=== PATIENT | female | born 1970 | race Caucasian/White ===

== ENCOUNTER → 2020-09-15 12:20 | Outpatient (CLI) | payer BC, SELFPAY ==
--- NOTE | ~2020-09-15 | XR_ITS ---
XR ankle LT min 3V DATE: 09/15/2020 12:38 INDICATION: Left lateral ankle pain from running TECHNIQUE: 4 views COMPARISON: None FINDINGS: There is mild lateral soft tissue swelling. No fracture or dislocation of the ankle or disr uption of the ankle mortise. Mild plantar and slight posterior calcaneal enthesopathy IMPRESSION: Mild lateral soft tissue swelling Reviewed, dictated and finalized at location A.
== END ==
PROVIDERS: PCP Internal Medicine; Visit Provider Internal Medicine Endocrinology, Diabetes & Metabolism
DX: M25.572 Pain in left ankle and joints of left foot (principal); M79.89 Other specified soft tissue disorders
CPT/HCPCS: 73610

== ENCOUNTER 2021-08-09 11:00 | Emergency (ER) | payer BC, SELFPAY ==
[2021-08-09 11:06] VITALS: BP 139/88; PULSE 62; RESP 16; TEMP 36.4; O2SAT 99
--- NOTE | 2021-08-09 11:06 | ED.SKABFB ---
HPI - Skin/Abscess/Foreign Bdy General Chief complaint: Skin/Abscess/Foreign Body Stated complaint: rash on face and neck Time Seen by Provider: 08/09/21 11:08 Source: patient Mode of arrival: ambulatory Limitations: no limitations History of Present Illness HPI narrative: 50-year-old female presented for complaint of rash to the left side of her face and neck, onset 2 days ago. States the rash itches, denies any pain or drainage. She endorses laying out in the sun and using a new sunscreen, she was also pulling weeds. She has applied Benadryl cream and hydrocortisone cream with minimal relief. MD complaint: rash Related Data Home Medications Medication Instructions Recorded Confirmed colchicine 0.6 mg tablet tablet 08/09/21 fluticasone furoate 200 ea inhalation 08/09/21 mcg-vilanterol 25 mcg/dose inhalation powder (Breo Ellipta) levothyroxine 100 mcg tablet tablet 08/09/21 mepolizumab 100 mg/mL subcutaneous ea subcut 08/09/21 auto-injector (Nucala) Allergies Allergy/AdvReac Type Severity Reaction Status Date / Time No Known Allergies Allergy Unknown Unverified 08/10/15 18:57 Review of Systems Review of Systems: CONSTITUTIONAL: Denies body aches, fever, chills, or sweats. EYES: Denies visual changes itching or drainage ENT: Denies rhinorrhea, congestion, sore throat, or otalgia. CARDIOVASCULAR: Denies chest pain, palpitations, or edema. RESPIRATORY: Denies cough or dyspnea. GASTROINTESTINAL: Denies abdominal pain, nausea, vomiting, or diarrhea. SKIN: endorses rash, itching NEUROLOGIC: Denies headache, numbness, tingling, or weakness. PMFSH Comments At time of signature, I have reviewed and agree with nursing past medical, surgical, social and family history unless otherwise noted. Please see nursing chart for further information. There is no relevant family history pertinent to the presenting complaint Exam Narrative: GENERAL: Well-appearing; no acute distress. HEAD: Normocephalic, atraumatic. EYES: PERRLA, conjunctivae clear, and EOMI. ENT: Mucous membranes moist. Oropharynx without edema, erythema or lesions. NECK: Supple. No lymphadenopathy CHEST: Clear to auscultation. No respiratory distress. HEART: Regular rate and rhythm. SKIN: Warm, dry. Patches of erythematous papular lesions to left side of face/hairline and middle of neck crossing to right side of cheek and neck; one lesion to left cheek and small lesion to middle of upper lip under nose; c/w dermatitis NEURO: Alert and oriented x3. PSYCH: Normal mood and affect Course Course Emergency Course: Patient is aware of diagnosis, understands and agrees to treatment plan. Anticipatory guidance given. Patient agrees to follow-up as directed and is aware of reasons to seek care at the emergency department. Portions of this record may have been created with voice recognition software Level of Care: Express Care Visit Vital Signs Vital signs: Reviewed MDM - Skin/Abscess/Foreign Bdy MDM Narrative Medical decision making narrative: Does not appear at this time to be erythema multiforme, bullous, SJS, TEN; Patient looks well, nontoxic; no neurologic signs or symptoms; No soft palate or uvula edema, no tongue, lip edema or other mucosal involvement, no respiratory compromise, afebrile; appropriate for initial outpatient treatment; discussed the importance of follow-up, patient agrees. Instructed patient to go to nearest ER immediately for any worsening symptoms including but not limited to: fever, spreading rash, pain, sore throat, headache, dizziness, chest pain, trouble breathing, or any symptoms concerning to the patient. Differential Diagnosis Differential diagnosis: Likely abscess of skin or subcutaneous tissue, urticaria, herpes zoster, cellulitis and contact dermatitis Discharge Plan Discharge Clinical Impression: Contact dermatitis Qualifiers: Contact dermatitis type: unspecified Contact dermatitis trigger: unspecified trigger
== END 2021-08-09 11:25 | disposition home or self-care (01) ==
PROVIDERS: Emergency Provider Nurse Practitioner Family; PCP Internal Medicine
DX: L25.9 Unspecified contact dermatitis, unspecified cause (principal); J45.909 Unspecified asthma, uncomplicated; E03.9 Hypothyroidism, unspecified
CPT/HCPCS: 99203; G0463

== ENCOUNTER 2021-08-18 11:02 | Emergency (ER) | payer BC, SELFPAY ==
[2021-08-18 11:08] VITALS: BP 137/88; PULSE 57; RESP 12; TEMP 36.2; O2SAT 100
--- NOTE | 2021-08-18 11:24 | ED.SKABFB ---
HPI - Skin/Abscess/Foreign Bdy General Chief complaint: Skin/Abscess/Foreign Body Stated complaint: RASH ON FACE Source: patient Mode of arrival: ambulatory Limitations: no limitations History of Present Illness HPI narrative: 50-year-old female presented for complaint of rash to the left side of her face, stating she thinks it is poison marsha, for about 4 days. She was seen on 08/09 and given a steroid for rash on her face as well which had resolved. However she also reports that she started pulling weeds again and developed the new rash subsequently. Admits she has never pulled weeds prior to 08/09 rash. Denies lip tongue or throat swelling or itching. Has applied hydrocortisone and calamine to the sites. MD complaint: rash Related Data Home Medications Medication Instructions Recorded Confirmed colchicine 0.6 mg tablet tablet 08/09/21 fluticasone furoate 200 ea inhalation 08/09/21 mcg-vilanterol 25 mcg/dose inhalation powder (Breo Ellipta) levothyroxine 100 mcg tablet tablet 08/09/21 mepolizumab 100 mg/mL subcutaneous ea subcut 08/09/21 auto-injector (Nucala) Allergies Allergy/AdvReac Type Severity Reaction Status Date / Time No Known Allergies Allergy Unknown Unverified 08/10/15 18:57 Review of Systems Review of Systems: CONSTITUTIONAL: Denies body aches, fever, chills, or sweats. EYES: Denies visual changes, redness, swelling or discharge. ENT: Denies rhinorrhea, congestion, sore throat, or otalgia. CARDIOVASCULAR: Denies chest pain, palpitations, or edema. RESPIRATORY: Denies cough or dyspnea. GASTROINTESTINAL: Denies abdominal pain, nausea, vomiting, or diarrhea. GENITOURINARY: Denies dysuria or hematuria. SKIN: reports rash, itching PMFSH Comments At time of signature, I have reviewed and agree with nursing past medical, surgical, social and family history unless otherwise noted. Please see nursing chart for further information. There is no relevant family history pertinent to the presenting complaint Exam Narrative: GENERAL: Well-appearing EYES: conjunctivae clear, and EOMI. ENT: Mucous membranes moist. Oropharynx without edema, erythema or lesions. NECK: Supple. No lymphadenopathy CHEST: Clear to auscultation. No respiratory distress. HEART: Regular rate and rhythm. SKIN: Warm, dry. Urticarial lesions to left anterior cheek; no lip tongue or throat swelling; few scattered lesions to left lower back Course Course Emergency Course: Patient is aware of diagnosis, understands and agrees to treatment plan. Anticipatory guidance given. Patient agrees to follow-up as directed and is aware of reasons to seek care at the emergency department. Portions of this record may have been created with voice recognition software Level of Care: Express Care Visit Vital Signs Vital signs: Vital Signs Temperature 97.1 F L 08/18/21 11:08 Pulse Rate 57 L 08/18/21 11:08 Respiratory Rate 12 08/18/21 11:08 Blood Pressure 137/88 08/18/21 11:08 Pulse Oximetry 100 08/18/21 11:08 Oxygen Delivery Room Air 08/18/21 11:08 Temperature 97.1 F L 08/18/21 11:08 Pulse Rate 57 L 08/18/21 11:08 Respiratory Rate 12 08/18/21 11:08 Blood Pressure 137/88 08/18/21 11:08 Pulse Oximetry 100 08/18/21 11:08 Oxygen Delivery Room Air 08/18/21 11:08 Reviewed MDM - Skin/Abscess/Foreign Bdy MDM Narrative Medical decision making narrative: IM steroid given, Rx Medrol to start tomorow. Does not appear at this time to be erythema multiforme, bullous, SJS, TEN; Patient looks well, nontoxic,no tongue, lip edema or other mucosal involvement, appropriate for initial outpatient treatment; discussed the importance of follow-up, patient agrees Instructed patient to go to nearest ER immediately for any worsening symptoms including but not limited to: fever, spreading rash, pain, sore throat, headache, dizziness, chest pain, trouble breathing, or any symptoms concerning to the patient. Advised f/u w
[2021-08-18] MEDS: methylPREDNISolone SOD SUCC 125 MG VIAL IM (11:40)
== END 2021-08-18 11:57 | disposition home or self-care (01) ==
PROVIDERS: Emergency Provider Nurse Practitioner Family; PCP Internal Medicine
DX: L25.9 Unspecified contact dermatitis, unspecified cause (principal); J45.909 Unspecified asthma, uncomplicated; E03.9 Hypothyroidism, unspecified
CPT/HCPCS: 96372; 99213; G0463; J2930

== ENCOUNTER 2022-03-22 14:40 | Emergency (ER) | payer BC, SELFPAY ==
[2022-03-22 14:52] VITALS: BP 128/100; PULSE 77; RESP 16; TEMP 37.1; O2SAT 100
--- NOTE | 2022-03-22 15:15 | ED.FEMALEGU ---
HPI - Female Genitourinary General Chief complaint: Urogenital-Female Stated complaint: bladder infection Time Seen by Provider: 03/22/22 15:15 Source: patient and RN notes reviewed Mode of arrival: ambulatory Limitations: no limitations History of Present Illness HPI Narrative: 51-year-old female presented for complaints of urinary frequency and feeling like she is not emptying the bladder. Onset yesterday, worse today. She also has been drinking large amounts of water today. She denies hematuria, abdominal pain, flank pain, nausea, vomiting, fevers or chills. Related Data Home Medications Medication Instructions Recorded Confirmed levothyroxine 100 mcg tablet 1 tablet PO DAILY 08/09/21 08/18/21 mepolizumab 100 mg/mL subcutaneous 1 ea subcut USEASDIRECTD 08/09/21 08/18/21 auto-injector (Nucala) budesonide 0.5 mg/2 mL suspension mg 03/22/22 for nebulization Allergies Allergy/AdvReac Type Severity Reaction Status Date / Time No Known Allergies Allergy Unknown Unverified 03/22/22 14:49 Review of Systems Review of Systems: CONSTITUTIONAL: Denies body aches, fever, chills, or sweats. CARDIOVASCULAR: Denies chest pain, palpitations, or edema. RESPIRATORY: Denies cough or dyspnea. GASTROINTESTINAL: Denies abdominal pain, nausea, vomiting, or diarrhea. GENITOURINARY: per HPI SKIN: Denies rash, itching, or wounds. MUSCULOSKELETAL: Denies back pain or myalgia. PMFSH Comments At time of signature, I have reviewed and agree with nursing past medical, surgical, social and family history unless otherwise noted. Please see nursing chart for further information. There is no relevant family history pertinent to the presenting complaint Exam Narrative: GENERAL: Well-appearing ENT: Mucous membranes pink and moist. NECK: Normal AROM. Supple. CHEST: No respiratory distress. Clear to auscultation. HEART: Regular rate and rhythm. ABDOMEN: Soft, nontender, nondistended, normal active bowel sounds. No CVA tenderness SKIN: Warm, dry, no rash. NEURO: No focal deficits. Alert and oriented x3. Gait steady. PSYCH: Normal affect. Course Course Emergency Course: Patient is aware of diagnosis, understands and agrees to treatment plan. Anticipatory guidance given. Patient agrees to follow-up as directed and is aware of reasons to seek care at the emergency department. Portions of this record may have been created with voice recognition software Level of Care: Express Care Visit Vital Signs Vital signs: Vital Signs Temperature 98.8 F 03/22/22 14:52 Pulse Rate 77 03/22/22 14:52 Respiratory Rate 16 03/22/22 14:52 Blood Pressure 128/100 H 03/22/22 14:52 Pulse Oximetry 100 03/22/22 14:52 Oxygen Delivery Room Air 03/22/22 14:52 Temperature 98.8 F 03/22/22 14:52 Pulse Rate 77 03/22/22 14:52 Respiratory Rate 16 03/22/22 14:52 Blood Pressure 128/100 H 03/22/22 14:52 Pulse Oximetry 100 03/22/22 14:52 Oxygen Delivery Room Air 03/22/22 14:52 Reviewed MDM - Female Genitourinary MDM Narrative Medical decision making narrative: Results of urine reviewed with patient. Advised supportive measures and signs/symptoms to go to the ER. Pt is appropriate for outpt treatment and f/u. Differential Diagnosis Differential diagnosis: Likely urinary tract infection and cystitis Lab Data Labs: Urine Glucose Negative Reference Range: Negative Urine Bilirubin Negative Reference Range: Negative Urine Ketone Negative Reference Range: Negative Urine Specific Gilman 1.015 Reference Range:1.001-1.035 Urine Blood 2+ Reference Range: Negative
== END 2022-03-22 15:40 | disposition home or self-care (01) ==
PROVIDERS: Emergency Provider Nurse Practitioner Family; PCP Internal Medicine
DX: R35.0 Frequency of micturition (principal); J45.909 Unspecified asthma, uncomplicated; E03.9 Hypothyroidism, unspecified
CPT/HCPCS: 81003; 87077; 87086; 87186; 99213; G0463

== ENCOUNTER 2022-07-25 16:28 | Emergency (ER) | payer BC, SELFPAY ==
[2022-07-25 16:32] VITALS: BP 132/99; PULSE 67; RESP 18; TEMP 36.6; O2SAT 100
--- NOTE | 2022-07-25 17:07 | ED.FEMALEGU ---
HPI - Female Genitourinary General Chief complaint: Urogenital-Female Stated complaint: Nausea/Lower Back Pain Time Seen by Provider: 07/25/22 17:07 Source: patient, RN notes reviewed and old records reviewed Mode of arrival: ambulatory Limitations: no limitations History of Present Illness HPI Narrative: 51-year-old female presents to the [facility] with complaints of low back pain abdominal pain, nausea. Patient states this started last night, sudden onset pain got so bad she went slipped in the recliner, went to bed and woke up and started having the nausea and increased pain. Denies any urinary symptoms Denies any frequency urgency or burning. No saddle anesthesia. No midline tenderness. No numbness and tingling extremities. Onset (ago): day(s) (1) Related Data Home Medications Medication Instructions Recorded Confirmed levothyroxine 100 mcg tablet 1 tablet PO DAILY 08/09/21 07/25/22 fluticasone furoate 200 200 inh inhalation DIRECTED 07/25/22 07/25/22 mcg-vilanterol 25 mcg/dose inhalation powder (Breo Ellipta) Allergies Allergy/AdvReac Type Severity Reaction Status Date / Time No Known Allergies Allergy Unknown Unverified 03/22/22 14:49 Review of Systems Review of Systems: All systems reviewed & are unremarkable except as noted in HPI and below Constitutional: Constitutional: Reports no additional constitutional complaints Eyes: Eyes: Reports no additional eye complaints ENT: Reports system reviewed and no additional complaints, except as documented Cardiovascular: Cardiovascular: Reports no additional cardiovascular complaints, Denies chest pain and Denies dyspnea Respiratory: Respiratory: Reports no additional respiratory complaints, Denies chest congestion, Denies cough and Denies dyspnea Gastrointestinal: Gastrointestinal: Reports as per HPI, Reports abdominal pain, Reports nausea and Denies vomiting Musculoskeletal: Musculoskeletal: Reports as per HPI and Reports back pain Integumentary/Breasts: Skin/Breast: Reports system reviewed and no additional complaints, except as docu Neurologic: Reports system reviewed and no additional complaints, except as documented Psychiatric: Psychiatric: Reports no additional psychiatric complaints Allergic/Immunologic: Allergic/Immunologic: Reports no additional allergic/immunologic complaints [facility] Past Medical History Medical History (Updated 07/25/22 @ 19:58 by Tierra Byrne APRN) Hypothyroid Comments At the time of my signature, I reviewed and agree with the nursing past medical, surgical, social, and family history. There is no relevant family history pertinent to the patient complaint. Exam Const: General: cooperative, healthy appearing, comfortable, no acute distress, well developed, alert and well nourished Nutritional Appearance: well nourished Orientation/consciousness: patient oriented x3 Limitations: no limitations HENMT: Head: normal to inspection Ears: hearing grossly normal bilaterally and external ears normal Face/Nose/Sinus: Normal external nose present, Normal nares present, Normal nasal mucous membranes and turbinates present and normal facial exam Face and sinus: normal facial exam Mouth: Yes lip normal Eyes: General: appearance normal, both eyes and all related structures Alignment and Position: alignment normal Periorbital: periorbital findings normal Pupils: Equal, round and reactive pupils present EOM: EOMs intact bilaterally Neck: Neck: normal visual inspection, full ROM, no lymphadenopathy and no meningeal signs Chest: Chest palpation & inspection: normal inspection of the chest Resp: Effort & Inspection: normal respiratory effort and able to speak in complete sentences Auscultation: clear to auscultation bilaterally, no crackles, no rales, no rhonchi and no wheezes Cardio: Rate: regular rate Rhythm: regular rhythm GI: Inspection: normal to inspection GI Palp: Yes abdominal tenderness (Generalized lower ab
== END 2022-07-25 17:29 | disposition short-term general hospital (02) ==
PROVIDERS: Emergency Provider Nurse Practitioner; PCP Internal Medicine
DX: R10.30 Lower abdominal pain, unspecified (principal); R11.0 Nausea; E03.9 Hypothyroidism, unspecified
CPT/HCPCS: 81003; 99212; G0463

== ENCOUNTER 2022-08-27 10:39 | Emergency (ER) | payer BC, SELFPAY ==
--- NOTE | ~2022-08-27 | XR_ITS ---
XR foot LT min 3V DATE: 08/27/2022 11:01 INDICATION: Left distal metatarsal foot pain for 2 days, of unknown cause TECHNIQUE: 4 views COMPARISON: None FINDINGS: Mild plantar calcaneal enthesopathy. Posterior slight calcaneal enthesopathy. No fracture, dislocation, periosteal reaction or bone destruction of the left foot is detected. No er osive change. IMPRESSION: Mild plantar and slight posterior calcaneal enthesopathy Reviewed, dictated and finalized at location A.
--- NOTE | 2022-08-27 10:43 | ED.GENADULT ---
HPI - General Adult General Chief complaint: Extremity Injury, Lower Stated complaint: left foot pain Time Seen by Provider: 08/27/22 10:47 Source: patient, RN notes reviewed and old records reviewed Mode of arrival: ambulatory Limitations: no limitations History of Present Illness HPI narrative: 51-year-old female presents to the [facility] with left foot pain for 1 week. Denies any current injury. Has a history of a fracture in that area. Most pain on the dorsal aspect distal foot. No toe involvement. Related Data Home Medications Medication Instructions Recorded Confirmed levothyroxine 100 mcg tablet 1 tablet PO DAILY 08/09/21 07/25/22 fluticasone furoate 200 200 inh inhalation DIRECTED 07/25/22 07/25/22 mcg-vilanterol 25 mcg/dose inhalation powder (Breo Ellipta) albuterol sulfate 90 mcg/actuation inhalation 08/27/22 aerosol inhaler budesonide 0.5 mg/2 mL suspension mg 08/27/22 for nebulization mepolizumab 100 mg/mL subcutaneous mg subcut 08/27/22 auto-injector (Nucala) Allergies Allergy/AdvReac Type Severity Reaction Status Date / Time No Known Allergies Allergy Unknown Unverified 08/27/22 10:44 Review of Systems Review of Systems: All systems reviewed & are unremarkable except as noted in HPI and below Constitutional: Constitutional: Reports no additional constitutional complaints Eyes: Eyes: Reports no additional eye complaints ENT: Reports system reviewed and no additional complaints, except as documented Cardiovascular: Cardiovascular: Reports no additional cardiovascular complaints, Denies chest pain and Denies dyspnea Respiratory: Respiratory: Reports no additional respiratory complaints, Denies chest congestion, Denies cough and Denies dyspnea Gastrointestinal: Gastrointestinal: Reports no additional gastrointestinal complaints, Denies abdominal pain, Denies nausea and Denies vomiting Musculoskeletal: Musculoskeletal: Reports as per HPI Integumentary/Breasts: Skin/Breast: Reports system reviewed and no additional complaints, except as docu Neurologic: Reports system reviewed and no additional complaints, except as documented Psychiatric: Psychiatric: Reports no additional psychiatric complaints Allergic/Immunologic: Allergic/Immunologic: Reports no additional allergic/immunologic complaints PMFSH Past Medical History Medical History Hypothyroid Comments At the time of my signature, I reviewed and agree with the nursing past medical, surgical, social, and family history. There is no relevant family history pertinent to the patient complaint. Exam Const: General: cooperative, healthy appearing, comfortable, no acute distress, well developed, alert and well nourished Nutritional Appearance: well nourished Orientation/consciousness: patient oriented x3 Limitations: no limitations HENMT: Head: normal to inspection Ears: hearing grossly normal bilaterally and external ears normal Face/Nose/Sinus: Normal external nose present, Normal nares present, Normal nasal mucous membranes and turbinates present and normal facial exam Face and sinus: normal facial exam Eyes: General: appearance normal, both eyes and all related structures Alignment and Position: alignment normal Periorbital: periorbital findings normal Pupils: Equal, round and reactive pupils present EOM: EOMs intact bilaterally Neck: Neck: normal visual inspection, full ROM, no lymphadenopathy and no meningeal signs Chest: Chest palpation & inspection: normal inspection of the chest Resp: Effort & Inspection: normal respiratory effort and able to speak in complete sentences Cardio: Rate: regular rate Rhythm: regular rhythm Back/Spine/Pelvis: Cervical Spine: cervical ROM normal Thoracic/Lumbar Spine: No thoracic spinal tenderness Skin: General skin exam: normal color and no rashes or lesions noted Lesions: no lesions Rashes: no rashes Wounds: no wo
[2022-08-27 10:47] VITALS: BP 113/93; PULSE 69; RESP 16; TEMP 36.6; O2SAT 99
--- NOTE | 2022-08-27 10:48 | PC.NURSE ---
delinquency prevention officer in to do exam.
== END 2022-08-27 11:22 | disposition home or self-care (01) ==
PROVIDERS: Emergency Provider Nurse Practitioner; PCP Internal Medicine
DX: M25.572 Pain in left ankle and joints of left foot (principal); E03.9 Hypothyroidism, unspecified
CPT/HCPCS: 73630; 99213; G0463